=== PATIENT | female | born 1965 | race Caucasian/White ===

== ENCOUNTER → 2020-01-20 10:38 | Outpatient (BNVA) | payer MEDICARE, MEDICAID, SELFPAY | PROVIDERS: Visit Provider Anesthesiology | DX: M51.17 Intervertebral disc disorders with radiculopathy, lumbosacral region (principal); M47.817 Spondylosis without myelopathy or radiculopathy, lumbosacral region; M79.651 Pain in right thigh; M79.652 Pain in left thigh; F17.210 Nicotine dependence, cigarettes, uncomplicated; Z79.891 Long term (current) use of opiate analgesic; Z71.6 Tobacco abuse counseling | CPT/HCPCS: 99214 ==

== ENCOUNTER 2020-05-02 12:49 | Outpatient (CLI) | payer MEDICARE, MEDICAID, SELFPAY ==
--- NOTE | 2020-05-02 13:02 | XR_ITS ---
WS: [id number] XR lumbar spine f/e only [id number] REASON FOR EXAM: SPONDYLOLISTHESIS, PL COMMENT ON PRESENCE OR ABSENCE OF SPIN FINDINGS: Grade 2 spondylolisthesis L5-S1. Angle weightbearing of L3 is markedly anterior to the base of the sacrum. The disc spaces and vertebral bodies are normal otherwise. XR/XR lumbar spine f/e only [id number] IMPRESSION: Grade 2 spondylolisthesis L5-S1.
== END 2020-05-02 12:50 | disposition home or self-care (01) ==
LOC: RADWPI 12:54
PROVIDERS: Family Provider Internal Medicine; PCP Internal Medicine; Visit Provider Nurse Practitioner
DX: M43.17 Spondylolisthesis, lumbosacral region (principal)
CPT/HCPCS: 72120